=== PATIENT | male | born 2000 | race Caucasian/White ===

== ENCOUNTER 2022-08-07 00:59 | Emergency (ER) | payer OTHER ==
[2022-08-07] MEDS ORDERED: OXYMETAZOLINE HCL 100 SPRAYS BOTTLE NAS STA (02:55)
--- NOTE | 2022-08-07 02:57 | ED Physician Documentation ---
PD HPI HEENT - Stated complaint Stated Complaint: SORE THROAT/CONGESTION - Chief complaint Chief Complaint: Heent - History obtained from History obtained from: Patient - Additional information Additional information: 22-year-old man , Previously healthy, presents with sore throat, nasal congestion, Sinus pressure, frontal headache, for the past 6 to 3 days. Denies fever. Review of Systems Constitutional: denies: Fever, Chills Ears: denies: Ear pain Nose: reports: Congestion Throat: reports: Sore throat Respiratory: reports: Cough. denies: Dyspnea PD PAST MEDICAL HISTORY - Allergies Allergies/Adverse Reactions: Allergies Allergy/AdvReac Type Severity Reaction Status Date / Time Penicillins Allergy Itching Verified 08/07/22 01:32 PD ED PE NORMAL - Vitals Vital signs reviewed: Yes - General General: Alert and oriented X 3, No acute distress, Well developed/nourished - HEENT HEENT: Atraumatic, PERRL, EOMI, Pharynx benign, Other (Mild oropharyngeal erythema. Moderate erythema and swelling of nasal turbinates.) - Neck Neck: Supple, no meningeal sign - Cardiac Cardiac: RRR - Respiratory Respiratory: No respiratory distress, Clear bilaterally Results - Vitals Vitals: Vital Signs - 24 hr 08/07/22 01:23 Temperature 37.1 C Heart Rate 67 Respiratory 18 Rate Blood Pressure 110/77 O2 Saturation 99 Oxygen O2 Source Room air PD Medical Decision Making - ED course ED course: 22-year-old man presents with viral URI symptoms for the past 2 to 3 days. Symptomatic care discussed. Return precautions given. Plan to follow-up with primary care provider. Departure - Departure Disposition: 01 Home, Self Care Clinical Impression: Viral URI with cough Condition: Stable Instructions: ED Viral Syndrome Comments: You are seen in the emergency department for nasal congestion, cough, sinus headache and other symptoms. Please follow-up with your primary care provider this week. Go to your local pharmacy and get Afrin (generic oxymetazoline nasal spray) or phenylephrine nasal spray which you can take twice daily as needed. Return to the emergency department for new or worsening symptoms or other concerns.
[2022-08-07 03:03] VITALS: BP 105/73
== END 2022-08-07 03:03 | disposition home or self-care (01) ==
LOC: ED 00:59
DX: J06.9 Acute upper respiratory infection, unspecified (principal)
CPT/HCPCS: 99281; 99283; A9270

== ENCOUNTER 2022-09-01 01:58 | Emergency (ER) | payer OTHER ==
[2022-09-01 02:10] VITALS: BP 117/76
[2022-09-01] MEDS ORDERED: IBUPROFEN 800 MG TABLET PO STA (03:04)
--- NOTE | 2022-09-01 03:06 | ED Physician Documentation ---
PD HPI UPPER EXT INJURY - Stated complaint Stated Complaint: left wrist pain - Chief complaint Chief Complaint: Trauma Ext - History obtained from History obtained from: Patient - Additonal information Additional information: Patient is a 22-year-old male presenting for evaluation of left wrist injury. Patient was rollerskating and fell. Denies hitting his head or having LOC. He is right-hand dominant. Review of Systems Constitutional: denies: Fever Cardiac: denies: Chest pain / pressure Respiratory: denies: Dyspnea Musculoskeletal: reports: Joint pain PD PAST MEDICAL HISTORY - Past Medical History Past Medical History: No - Past Surgical History Past Surgical History: No - Present Medications Home Medications: Ambulatory Orders Medication Instructions Recorded Confirmed No Known Home Medications 09/01/22 09/01/22 - Allergies Allergies/Adverse Reactions: Allergies Allergy/AdvReac Type Severity Reaction Status Date / Time Penicillins Allergy Itching Verified 09/01/22 02:10 - Social History Does the pt smoke?: No Smoking Status: Never smoker Does the pt drink ETOH?: No Does the pt have substance abuse?: No - Immunizations Immunizations are current?: Yes - POLST Patient has POLST: No PD ED PE NORMAL - General General: Alert and oriented X 3, No acute distress, Well developed/nourished - HEENT HEENT: Atraumatic - Neck Neck: Supple, no meningeal sign, No bony TTP, C-Spine cleared by NEXUS criteria - Cardiac Cardiac: Strong equal pulses - Respiratory Respiratory: No respiratory distress - Derm Derm: Warm and dry - Extremities Extremities: Other (Mild swelling and tenderness to dorsum of left wrist, pain on range of motion, tenderness in the snuffbox, good radial pulse, no bony tenderness over hand, normal range of motion at elbow) - Neuro Neuro: Alert and oriented X 3, No motor deficit, No sensory deficit, Normal speech Eye Opening: Spontaneous Motor: Obeys Commands Verbal: Oriented GCS Score: 15 Results - Vitals Vitals: Vital Signs - 24 hr 09/01/22 02:07 Temperature 36.6 C Heart Rate 60 Respiratory 12 Rate Blood Pressure 117/76 O2 Saturation 100 Oxygen O2 Source Room air PD Medical Decision Making - ED course Complexity details: reviewed results, d/w patient ED course: Patient presenting for evaluation of left wrist injury. 4 view x-ray was obtained which I reviewed and see no fracture or dislocation.Neurovascularly intact.Patient was placed into a Velcro splint. 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 We will place on limited duty until he is seen for reevaluation. Discussed continued supportive care as well as concerning symptoms to return for. No head injury or pain elsewhere. Departure - Departure Disposition: 01 Home, Self Care Clinical Impression: Left wrist injury Condition: Stable Instructions: ED Splint Care Velcro, ED Sprain Wrist Comments: Your x-ray does not show a broken or out of place bone. Sometimes initial x- rays do not show injuries And so we have placed a Velcro splint on to your wrist but I would recommend wearing until you are seen for follow-up. I would [facility]Continue with ice, anti-inflammatories (Ibuprofen or acetaminophen), elevation and rest. If you develop any worsening symptoms such as pain in a new location consider return to the emergency department. Forms: Activity restrictions
--- NOTE | 2022-09-01 08:47 | XRAY Report ---
PROCEDURE: Wrist 4 View LT INDICATIONS: fall/pain TECHNIQUE: 4 views of the wrist were acquired. COMPARISON: None. FINDINGS: Bones: No fractures or dislocations. No suspicious bony lesions. Scaphoid view: No visualized fracture. Soft tissues: No suspicious soft tissue calcifications or masses. IMPRESSION: No visualized acute fracture or dislocation. However, occult injury cannot be excluded. Recommend katerina rt interval imaging follow-up in 7-10 days as clinically indicated for additional evaluation. The above findings are concordant with preliminary report. Reviewed by: Tonya Cook MD on 09/01/2022 8:46 AM PDT Approved by: Tonya Cook MD on 09/01/2022 8:46 AM PDT Station ID: [id number]
== END 2022-09-01 03:28 | disposition home or self-care (01) ==
LOC: ED 01:58
DX: S69.92XA Unspecified injury of left wrist, hand and finger(s), initial encounter (principal); W18.30XA Fall on same level, unspecified, initial encounter; Y93.51 Activity, roller skating (inline) and skateboarding
CPT/HCPCS: 73110; 99283; A9270

== ENCOUNTER 2022-12-03 14:42 | Emergency (ER) | payer OTHER ==
[2022-12-03] MEDS ORDERED: KETOROLAC 60 MG/2 ML VIAL IM STA (15:28)
[2022-12-03] MEDS ORDERED: DROPERIDOL 5 MG/2 ML VIAL IM STA (15:28)
--- NOTE | 2022-12-03 15:45 | ED Physician Documentation ---
History of Present Illness - Stated complaint Stated Complaint: MIGRAINE - Chief complaint Chief Complaint: Neuro - History obtained from History obtained from: Patient - History of Present Illness Timing: How many days ago (2) Pain level max: 7 Pain level now: 7 - Additonal information Additional information: 22-year-old male with a gradual onset headache since yesterday. Described as behind the eyes. No fevers. No chills. No cough. No congestion. Took Tylenol without relief. Worse with light and sound. Better with closing his eyes. He is unsure if there is a family history of headaches. Denies any trauma. He states it feels like there is a pulsation in his head. No nausea or vomiting. Review of Systems Constitutional: denies: Fever, Chills Respiratory: denies: Cough GI: denies: Nausea, Vomiting, Diarrhea Skin: denies: Rash Musculoskeletal: denies: Neck pain, Back pain Neurologic: denies: Headache PD PAST MEDICAL HISTORY - Past Medical History Past Medical History: No - Past Surgical History Past Surgical History: No - Present Medications Home Medications: Ambulatory Orders Medication Instructions Recorded Confirmed No Known Home Medications 09/01/22 12/03/22 - Allergies Allergies/Adverse Reactions: Allergies Allergy/AdvReac Type Severity Reaction Status Date / Time Penicillins Allergy Itching Verified 12/03/22 14:45 - Living Situation Living Arrangement: reports: At home - Social History Does the pt smoke?: No Smoking Status: Never smoker Does the pt drink ETOH?: No Does the pt have substance abuse?: No - Immunizations Immunizations are current?: Yes - POLST Patient has POLST: No PD ED PE NORMAL - Vitals Vital signs reviewed: Yes - General General: Alert and oriented X 3, No acute distress, Other (Sitting in a room with eyes wide open, in bright light.) - HEENT HEENT: PERRL, Ears normal, Moist mucous membranes, Pharynx benign, Other (no sinus tenderness) - Neck Neck: Supple, no meningeal sign - Cardiac Cardiac: RRR, Strong equal pulses - Respiratory Respiratory: No respiratory distress, Clear bilaterally - Abdomen Abdomen: Soft, Non tender, Non distended - Derm Derm: Warm and dry - Extremities Extremities: No edema, No calf tenderness / cord - Neuro Neuro: Alert and oriented X 3, checker stocker 2-12 intact, No motor deficit, No sensory deficit, Normal speech (Normal cerebellar tests. NIH stroke scale of 0), Other Eye Opening: Spontaneous Motor: Obeys Commands Verbal: Oriented GCS Score: 15 - Psych Psych: Normal mood, Normal affect Results - Vitals Vitals: Vital Signs - 24 hr 12/03/22 12/03/22 12/03/22 14:45 15:51 16:56 Temperature 36.5 C 36.4 C L Heart Rate 81 76 96 Respiratory 16 16 16 Rate Blood Pressure 123/72 119/74 122/74 O2 Saturation 97 96 99 Oxygen O2 Source Room air PD Medical Decision Making - ED course Complexity details: re-evaluated patient, considered differential, d/w patient ED course: Patient was given Toradol and droperidol. Slept in the emergency department. Headache resolved. Patient asymptomatic. No neurological deficits. No indication of subarachnoid hemorrhage or intracranial tumor or mass. We will have him follow-up with his doctor for further care. No evidence of infection. No evidence of sinusitis. No tenderness over the sinuses. Patient counseled regarding signs and symptoms for which I believe and urgent re-evaluation would be necessary. Patient with good understanding of and agreement to plan and is comfortable going home at this time This document was made in part using voice recognition software. While efforts are made to proofread this document, sound alike and grammatical errors may occur. Departure - Departure Disposition: 01 Home, Self Care Clinical Impression: Headache Qualifiers: Headache type: unspecified Headache chronicity pattern: acute headache Intractability: not intractable Qualified Code(s): R51.9 - Headache, unspecified Condition: Good Instructions: ED Cephalgia Unspecified Follow-Up: RICHARD STRANGE MD [Primary Care Provider] - Within 1 week Comments: Please follow-up with your doctor for further care. Go home and rest today. Return if you worsen Forms: PCP List Discharge Date/Time: 12/03/22 16:59
[2022-12-03 17:04] VITALS: BP 122/74; O2SAT 99
== END 2022-12-03 16:59 | disposition home or self-care (01) ==
LOC: ED 14:42
DX: R51.9 Headache, unspecified (principal)
CPT/HCPCS: 96372; 99283